=== PATIENT | male | born 1975 | race African-American/Black ===

== ENCOUNTER 2016-08-26 20:50 | Emergency (ER) | payer OTHER ==
[~2016-08-26] VITALS: Ht 177.8 cm; Wt 81.6 kg
[2016-08-26 20:57] VITALS: BP 137/96
== END 2016-08-27 01:18 | disposition home or self-care (01) ==
LOC: ER 20:57
DX: Z04.3 Encounter for examination and observation following other accident (principal); V49.49XA Driver injured in collision with other motor vehicles in traffic accident, initial encounter; Y93.89 Activity, other specified; Y99.8 Other external cause status; Y92.410 Unspecified street and highway as the place of occurrence of the external cause